=== PATIENT | female | born 1935 | race Caucasian/White ===

== ENCOUNTER → 2016-12-01 | Outpatient (CLI) | payer MEDICARE, OTHER | LOC: EMI 08:15 | DX: M51.37 Other intervertebral disc degeneration, lumbosacral region (principal); M54.5 Low back pain; M41.9 Scoliosis, unspecified; R27.0 Ataxia, unspecified; M51.36 Other intervertebral disc degeneration, lumbar region | CPT/HCPCS: 70551; 72148 ==

== ENCOUNTER → 2020-10-13 | Outpatient (CLI) | payer OTHER ==
[~2020-10-13] MED LIST: COREG CR80 MG PO
== END ==
LOC: MAMO 08:46
DX: Z12.31 Encounter for screening mammogram for malignant neoplasm of breast (principal); Z80.3 Family history of malignant neoplasm of breast
CPT/HCPCS: 77063; 77067

== ENCOUNTER → 2020-12-01 | Outpatient (CLI) | payer MEDICARE, OTHER ==
[2020-12-01 12:21] LABS: HEMOGLOBIN 13.2 gm/dl (12.3-15.3); RED BLOOD COUNT 4.31 M/UL (4.00-5.10); WHITE BLOOD COUNT 7.9 K/UL (4.5-11.0)
[2020-12-01 13:00] LABS: BUN/CREATININE RATIO 22 (0-10)
[2020-12-02 10:12] LABS: VITAMIN D, 25-HYDROXY 35.4 ng/mL (30.0-100.0)
[2020-12-02 12:11] LABS: RHEUMATOID ARTHRITIS FACTOR <10.0 IU/mL (0.0-13.9)
== END ==
LOC: LAB 10:49
PROVIDERS: Family Medicine
DX: E78.5 Hyperlipidemia, unspecified (principal); I10 Essential (primary) hypertension; E03.9 Hypothyroidism, unspecified; E55.9 Vitamin D deficiency, unspecified; Z13.89 Encounter for screening for other disorder; Z13.828 Encounter for screening for other musculoskeletal disorder
CPT/HCPCS: 36415; 80053; 80061; 84439; 84443; 84481; 84550; 85027; 85652; 86038; 86431

== ENCOUNTER → 2021-02-02 | Outpatient (CLI) | payer MEDICARE, OTHER | LOC: US 13:14 → EXRD 15:00 | DX: E04.1 Nontoxic single thyroid nodule (principal); R59.0 Localized enlarged lymph nodes; M81.0 Age-related osteoporosis without current pathological fracture | CPT/HCPCS: 76536; 77080 ==

== ENCOUNTER → 2021-04-30 | Outpatient (CLI) | payer MEDICARE, OTHER | LOC: RAD 15:11 | DX: M54.5 Low back pain (principal); R76.8 Other specified abnormal immunological findings in serum; M79.643 Pain in unspecified hand; M81.0 Age-related osteoporosis without current pathological fracture; M41.9 Scoliosis, unspecified; M62.838 Other muscle spasm | CPT/HCPCS: 72072; 72100; 73130 ==

== ENCOUNTER → 2021-09-08 | Outpatient (CLI) | payer MEDICARE, OTHER | LOC: EXRD 09-01 09:30 | DX: M81.0 Age-related osteoporosis without current pathological fracture (principal) | CPT/HCPCS: 77080 ==

== ENCOUNTER → 2022-03-04 | Outpatient (CLI) | payer MEDICARE, OTHER | LOC: RAD 16:06 | DX: M25.551 Pain in right hip (principal); M16.11 Unilateral primary osteoarthritis, right hip | CPT/HCPCS: 73502 ==

== ENCOUNTER → 2022-03-19 | Outpatient (CLI) | payer MEDICARE, OTHER ==
[2022-03-19 09:56] LABS: HEMOGLOBIN 13.9 gm/dl (12.3-15.3); RED BLOOD COUNT 4.41 M/UL (4.00-5.10); WHITE BLOOD COUNT 7.4 K/UL (4.5-11.0)
[2022-03-19 10:15] LABS: BUN/CREATININE RATIO 29 (0-10)
== END ==
LOC: LAB 09:33
PROVIDERS: Family Medicine
DX: E55.9 Vitamin D deficiency, unspecified (principal); E03.9 Hypothyroidism, unspecified; I10 Essential (primary) hypertension
CPT/HCPCS: 36415; 80053; 80061; 83735; 84439; 84443; 85027

== ENCOUNTER → 2022-04-19 | Outpatient (CLI) | payer MEDICARE, OTHER | LOC: EXRD 15:31 → EDSTATUS 17:48 | DX: G56.03 Carpal tunnel syndrome, bilateral upper limbs (principal); M79.642 Pain in left hand; M79.641 Pain in right hand; M19.042 Primary osteoarthritis, left hand; M19.041 Primary osteoarthritis, right hand | CPT/HCPCS: 73130 ==

== ENCOUNTER → 2022-04-30 | Outpatient (CLI) | payer MEDICARE, OTHER ==
[2022-04-30 16:24] LABS: HEMOGLOBIN 13.6 gm/dl (12.3-15.3); RED BLOOD COUNT 4.34 M/UL (4.00-5.10); WHITE BLOOD COUNT 8.9 K/UL (4.5-11.0)
== END ==
LOC: US 15:19
PROVIDERS: Optometrist
DX: H53.132 Sudden visual loss, left eye (principal); I65.22 Occlusion and stenosis of left carotid artery
CPT/HCPCS: 36415; 80061; 85025; 85652; 86140; 93880